=== PATIENT | male | born 1970 | race Caucasian/White ===

== ENCOUNTER 2024-01-09 16:58 | Emergency (ER) | payer OTHER, SELFPAY ==
[2024-01-09 17:03] VITALS: BP 130/84; BMI 30.4
[2024-01-09 17:24] LABS: % Basophils 0.4 % (0-2); % Eosinophils 4.5 % (0-6); % Immature Granulocytes 1.1 % (0-0.5); % Lymphocytes 30.5 % (20.5-51.1); % Monocytes 7.4 % (1.7-9.3); % Neutrophils 56.1 % (42.2-75.2); Absolute Eosinophils 0.4 10^3/uL (0-0.7); Absolute Immature Granulocytes 0.1 10^3/uL (0-0.05); Absolute Lymphocytes 2.6 10^3/uL (1.2-3.4); Absolute Monocytes 0.6 10^3/uL (0.1-0.6); Absolute Neutrophils 4.7 10^3/uL (1.4-6.5); Hematocrit 42.3 % (39.0-52.0); Hemoglobin 15.3 g/dL (13.0-18.0); Mean Corp Hgb Conc. 36.2 g/dL (33.0-37.0); Mean Corpuscular Hgb 31.5 pg (27.0-31.0); Mean Platelet Volume 9.4 fL (7.4-10.4); Nucleated Red Blood Cells % 0.6 % (-); Platelet Count 233 10^3/uL (130-400); Red Blood Cell Count 4.86 10^6/uL (4.70-6.10); Red Cell Dist. Width 13.7 % (11.5-14.5); White Blood Cell Count 8.4 10^3/uL (4.8-10.8)
[2024-01-09] MEDS: NSS 1000 IV (17:54)
[2024-01-09] MEDS: DECADRON 10 MG IV (17:55)
[2024-01-09] MEDS: ZOFRAN 4 MG IV (17:55)
[2024-01-09 18:00] VITALS: BP 133/73
--- NOTE | 2024-01-09 18:14 | ED.GENMED ---
History of Present Illness
General
Chief Complaint: Fainting Sensation
Source: patient and ambulance crew
Exam Limitations: none
Time Seen by Provider: 01/09/24 17:18
Nursing documentation reviewed up to this point in time: agreed with
Travel History
Have you had any contact with someone who has COVID-19?: No
Do you have any symptoms of coronavirus? Fever > 100 degrees, chills, cough, shortness of breath, sore throat, loss of taste or smell, muscle aches, or headache?: No
History of Present Illness
History of Present Illness:
53-year-old male acute onset of dizziness trouble ambulating
Nausea worse with head movement fairly severe,
With some headache, has had some neck pain for the last week or so, prior CVA with some minimal left hand numbness, he is unsure of all the details as he was drinking at the time of his stroke he is no longer a drinker not a smoker been compliant
with his antiplatelet agents and his statin,
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
headache, moving all extremities, very vertiginous with head movement
Past History
Past History
ED Past Medical History: CVA and HTN
Social History
Tobacco: Non-smoker
Alcohol: Former
Drug: None
Living: with family
Employment: Employed
Phy Exam
Physical Exam
Physical Exam:
Physical Exam
General: 53 male with normal mental status stable vital signs
Neck: No tongue bite
Heart: s1/s2 regular rate and rhythm, no murmur. equal radial pulses.
Lungs: no acute respiratory distress. clear bilaterally
Abdomen: Nontender
Neuro: alert and oriented. Normal finger-nose bilaterally, muscle strength 5 out of 5 upper and lower clear speech clear thought process no facial palsy, positive horizontal nystagmus exacerbated with Kylee-Hallpike maneuver
Skin: no rash
Psychiatric: well kept. interactive and cooperative
Extremities: no edema.
Course
Orders/Labs/Results
Orders:
Orders
01/09/24 17:11
Electrocardiogram (*1) Urgent
Reason for Study: Syncope
EKG- Treatment ONCE
01/09/24 17:16
Complete Blood Count/With Diff Urgent
01/09/24 17:19
Ondansetron Injectable [Zofran] 4 mg IV NOW STA
01/09/24 17:37
CT Head & Neck Angio W/wo IV Urgent
Comment:
Reason For Exam: neck pain vomiting prior cva
0.9% Sodium Chloride 1000 ml [Nss] 1,000 ml IV BOLUS
01/09/24 17:39
Dexamethasone Sod Phosphate [Decadron] 10 mg IV NOW STA
01/09/24 18:01
Comprehensive Metabolic Panel Urgent
Troponin I Urgent
Abnormal Lab Results
01/09/24 01/09/24
17:16 18:01
MCH 31.5 H pg
(27.0-31.0)
Abs Immat Gran (auto) 0.1 H 10^3/uL
(0-0.05)
Immature Gran % 1.1 H %
(0-0.5)
Glucose 175 H mg/dl
(70-99)
Total Protein 6.0 L g/dl
(6.3-8.2)
Albumin 3.4 L g/dl
(3.5-5.0)
01/09/24 17:16
01/09/24 18:01
Vital Signs
Initial and Last Documented VS:
Initial Vital Signs
Temp Pulse Resp BP Pulse Ox
97.6 F 90 15 130/84 98
01/09/24 17:03 01/09/24 17:03 01/09/24 17:03 01/09/24 17:03 01/09/24 17:03
Last Documented Vital Signs
Temp Pulse Resp BP Pulse Ox
97.6 F 93 15 133/73 98
01/09/24 17:03 01/09/24 18:45 01/09/24 18:45 01/09/24 18:00 01/09/24 18:45
MDM/Problems Addressed
Differential Diagnosis Includes:
Benign positional vertigo BPPV, intracerebral hemorrhage, posterior circulation process
MDM/Problems Addressed:
Vertigo
Chronic conditions affecting care:
Hypertension CAD
Acute Exacerbation and/or Progression of Chronic Illness:
Hypertension CVA
*Radiology
Radiology exam reviewed: preliminary read by ED provider
*Pulse Oximetry
Patient hypoxic: no
*EKG
Interpreted by ED Provider?: Yes
Interpretation: normal
Comparison EKG: no comparison EKG present
Heart Rate: 78
Rate: normal
Ischemia: no ischemia
*Ground Host/Hostess Interpretation
Rate: normal
Interpretation: normal
Heart Rate: 78
Rhythm: sinus
*Critical Care Note
Total Time (30-74mins, 75-104mins- exclusive of procedures): Not Applicable
Update Note
Update Note:
Update 9 PM patient feeling much better able to sit up normal finger-nose normal speech muscle strength 5 out of 5, little bit of fluid behind his TMs left greater than right but good landmarks no pain will hold on antibiotics, reviewed clinical
scenario typical recovery with patient and spouse she will drive him home
ED Attending Note
-
Portions of this chart may have been created with voice recognition software.� Occasional wrong word or��sound alike� substitutions may have occurred due to the inherent limitations of voice recognition software.
Discharge Plan
Departure
Patient Disposition: Home (Routine Discharge)
Date of Disposition: 01/09/24
Time of Disposition: 20:56
Patient with high blood pressure during this ER visit?: No
Condition: Good
Discharge Problem:
Vertigo
Instructions: Vertigo (a type of dizziness), Vestibular Exercises, Vertigo ED
Prescriptions:
New
meclizine [Antivert] 25 mg tablet,chewable
25 mg PO Q8HPRN PRN (Reason: nausea or vertigo) Qty: 20 0RF
No Action
quetiapine 25 mg Tablet
25 mg PO HS
atorvastatin 40 mg Tablet
40 mg PO DAILY
acyclovir 800 mg Tablet
800 mg PO HS
valsartan 160 mg Tablet
160 mg PO DAILY
bupropion HCl 300 mg Tablet Extended Release 24 Hr
300 mg PO DAILY
venlafaxine 225 mg Tablet Extended Release 24hr
225 mg PO DAILY
Eliquis 5 mg Tablet
5 mg PO BID
Referrals:
NONE,* [Family Provider] -
Activity Restrictions/Additional Instructions:
Rest, drink plenty fluids, follow-up with your family doctor return to the ER if worsening symptoms
Interventions
Interventions:
*Risk Screen - Suicide Last Done: 01/09/24 17:03
*General Assessment Last Done: 01/09/24 17:03
*Neglect/Abuse Screening Last Done: 01/09/24 17:03
ED- Fall Risk Assessment Last Done: 01/09/24 17:12
*ED COVID-19 Vaccine History Last Done: 01/09/24 17:03
ED- Cardiac Assessment Last Done: 01/09/24 17:12
ED- Neurological Assessment Last Done: 01/09/24 17:12
[2024-01-09 18:25] LABS: ALT (SGPT) 33 U/L (0-50); AST (SGOT) 27 U/L (17-59); Albumin 3.4 g/dl (3.5-5.0); Alkaline Phosphatase 66 U/L (38-126); Blood Urea Nitrogen 12 mg/dl (9-20); Calcium 8.4 mg/dl (8.4-10.2); Carbon Dioxide 26 mmol/L (22-30); Chloride 104 mmol/L (98-107); Estimated Creatinine Clearance 88 ml/min; Glucose 175 mg/dl (70-99); Potassium 4.4 mmol/L (3.5-5.1); Sodium 136 mmol/L (135-145); Total Bilirubin 0.6 mg/dl (0.2-1.3); eGFR > 60.00
[2024-01-09 18:35] LABS: Troponin I < 0.012 ng/ml
[2024-01-09 19:00] VITALS: BP 135/78
[2024-01-09 19:36] VITALS: BP 130/75
[2024-01-09 20:00] VITALS: BP 132/81
[2024-01-09 21:00] VITALS: BP 144/78
== END 2024-01-09 21:34 | disposition home or self-care (01) ==
LOC: EMR 16:58
PROVIDERS: EMERGENCY PHYSICIAN Emergency Medicine
DX: R42 Dizziness and giddiness (principal); I10 Essential (primary) hypertension; I25.10 Atherosclerotic heart disease of native coronary artery without angina pectoris
CPT/HCPCS: 99285; 96374; 96375; 96361; 70496; 70498; 80053; 84484; 85025; 93005; Q9967